=== PATIENT | female | born 1985 | race African-American/Black ===

== ENCOUNTER 2023-05-10 09:07 | Emergency (ER) | payer MEDICAID ==
[~2023-05-10] VITALS: Ht 170.2 cm; Wt 104.3 kg
[2023-05-10 09:35] VITALS: BP 126/86; PULSE 66; RESP 16; TEMP 98.2; O2SAT 100
[2023-05-10] MEDS ORDERED: KETO5DRO73 EACHEYE (10:38)
[2023-05-10] MEDS ORDERED: ERYT1OIN6 EACHEYE (10:38)
== END 2023-05-10 11:31 | disposition home or self-care (01) ==
LOC: ER 09:07
DX: H01.115 Allergic dermatitis of left lower eyelid (principal)
CPT/HCPCS: 99283